=== PATIENT | male | born 1940 | race Caucasian/White ===

== ENCOUNTER 2017-10-08 05:37 | Day surgery (SDC) | payer MEDICARE, BC ==
[2017-10-08] MEDS ORDERED: DIPRIVAN 200 MG/20 ML IV ONE (05:38)
[2017-10-08] MEDS ORDERED: Lactated Ringers 1,000 ML IV SCH (06:30)
[2017-10-08] MEDS ORDERED: Lactated Ringers 1,000 ML IV ONE ×3 (06:33→13:41)
[2017-10-08] MEDS ORDERED: Versed 2 MG/2 ML Injection IV STA (06:34)
[2017-10-08 14:24] VITALS: O2SAT 98
--- NOTE | 2017-10-08 14:33 | OP ---
SURGERY DATE/TIME: 10/08/2017 1329 PREOPERATIVE DIAGNOSIS: Screening colonoscopy. POSTOPERATIVE DIAGNOSIS: Sigmoid colon polyp. PROCEDURE: Colonoscopy. SURGEON: Giovanni Fraga M.D. ANESTHESIA: MAC by Christophe Rivera CRNA. ESTIMATED BLOOD LOSS: Minimal. SPECIMENS: Hot snare polypectomy from sigmoid colon x1. DESCRIPTION OF PROCEDURE: After informed written consent was obtained, the patient was taken to the endoscopy suite. He underwent monitored anesthesia and a digital rectal exam showed normal sphincter tone and no internal lesions. The scope was inserted into the rectum and sequentially the entire colonic mucosa was traversed. The level of cecum was reached and verified with direct visualization of ileocecal valve. Upon withdrawal there was a sessile polyp on a stalk in the proximal sigmoid colon which was entrapped with the snare and grasped at the base with cautery. It was removed in its entirety and retrieved and sent for pathology. No other lesions were encountered upon withdrawal. The scope was removed and the patient was transferred to the recovery room in good condition.
[2017-10-08 15:02] VITALS: PULSE 76
[2017-10-08 15:05] VITALS: BP 144/79
== END 2017-10-08 14:55 | disposition home or self-care (01) ==
LOC: SDC 05:37
PROVIDERS: ATTEND Family Medicine
PROC: 0DBN8ZX Excision of Sigmoid Colon, Via Natural or Artificial Opening Endoscopic, Diagnostic (ICD-10-PCS; principal; 2017-10-08)
DX: Z12.11 Encounter for screening for malignant neoplasm of colon (principal); K63.5 Polyp of colon
CPT/HCPCS: 99100; J2250; J2704

== ENCOUNTER 2018-06-05 01:29 | Emergency (ER) | payer MEDICARE, BC ==
[2018-06-05 01:52] VITALS: O2SAT 97
--- NOTE | 2018-06-05 01:52 | ERPHSYRPT ---
- History of Present Illness Time Seen by Provider: 06/05/18 01:46 Historian: patient Exam Limitations: no limitations Physician History: 78 y/o white male presents with constipation for 4 days not responding to milk of magnesia. no nausea or vomiting. started feeling lower abd pressure late last night and this am. there was a change in his meds last week. he was taken off of liquid tussionex for cough and put on benzonate pills. Timing/Duration: day(s) (4) Activities at Onset: none Quality: pressure Pain Radiation: no radiation Severity of Pain-Max: mild Severity of Pain-Current: mild Modifying Factors: Improves With: nothing Associated Symptoms: No diaphoresis, No diarrhea, No loss of appetite, No nausea , No vomiting Previous symptoms: no prior history Allergies/Adverse Reactions: adhesive tape Allergy (Verified 06/05/18 01:55) Blisters Home Medications: Hydrochlorothiazide 25 mg [hydroDIURIL 25 MG] 25 mg PO HS 12/06/13 [ History] Potassium Chloride [K-Dur] 20 meq PO HS 12/06/13 [History] Pravastatin Sodium [Pravachol] 40 mg PO HS 12/06/13 [History] Benzonatate [Tessalon Perle] 100 mg PO BID 06/05/18 [History] Fluticasone/Salmeterol [Advair 100-50 Diskus] 1 each IH BID 06/05/18 [History] Tamsulosin HCl 0.4 mg [Flomax 0.4 MG] 0.4 mg PO DAILY 06/05/18 [History] Hx Tetanus, Diphtheria Vaccination/Date Given: Yes (5 years ago) Hx Influenza Vaccination/Date Given: Yes (2013) Hx Pneumococcal Vaccination/Date Given: Yes (WITHIN 5 YRS) - Review of Systems Constitutional: No Symptoms Eyes: No Symptoms Ears, Nose, & Throat: No Symptoms Respiratory: No Symptoms Cardiac: No Symptoms Abdominal/Gastrointestinal: Abdominal Pain (lower abd pressure), Constipation, No Nausea, No Vomiting, No Diarrhea Genitourinary Symptoms: No Symptoms Musculoskeletal: No Symptoms Skin: No Symptoms Neurological: No Symptoms Psychological: No Symptoms Endocrine: No Symptoms Hematologic/Lymphatic: No Symptoms Immunological/Allergic: No Symptoms All Other Systems: Reviewed and Negative - Past Medical History Pertinent Past Medical History: Yes Neurological History: No Pertinent History ENT History: No Pertinent History Cardiac History: High Cholesterol, Hypertension Respiratory History: Bronchitis, COPD Endocrine Medical History: No Pertinent History Musculoskeletal History: Fractures GI Medical History: No Pertinent History History: No Pertinent History Psycho-Social History: No Pertinent History Male Reproductive Disorders: Prostate Problems - Past Surgical History Past Surgical History: Yes Neuro Surgical History: No Pertinent History Cardiac: No Pertinent History Respiratory: No Pertinent History Gastrointestinal: Hernia Repair Genitourinary: No Pertinent History Musculoskeletal: No Pertinent History Male Surgical History: No Pertinent History - Social History Smoking Status: Never smoker Exposure to second hand smoke: No Drug Use: none Patient Lives Alone: No - Nursing Vital Signs Nursing Vital Signs: Initial Vital Signs Temperature 98.1 F 06/05/18 01:40 Pulse Rate 80 06/05/18 01:40 Respiratory Rate 18 06/05/18 01:40 Blood Pressure 186/107 06/05/18 01:40 O2 Sat by Pulse Oximetry 97 06/05/18 01:40 Pain Scale Pain Intensity 3 - Physical Exam General Appearance: no apparent distress, alert, anxiety Eye Exam: PERRL/EOMI Ears, Nose, Throat Exam: normal ENT inspection, moist mucous membranes Neck Exam: normal inspection, non-tender, supple, full range of motion Respiratory Exam: normal breath sounds, lungs clear, airway intact, No chest tenderness, No respiratory distress, No accessory muscle use, No rhonchi, No wheezing, No stridor Cardiovascular Exam: regular rate/rhythm, normal heart sounds, normal peripheral pulses Gastrointestinal/Abdomen Exam: soft, normal bowel sounds, tenderness (lower midline suprapubic pressure), No distention, No guarding, No rebound Rectal Exam: not done Back Exam: normal inspection, normal range of motion, No CVA tenderness, No vertebral tenderness Extremity Exam: normal inspection, normal range of motion, pelvis stable Neurologic Exam: alert, oriented x 3, cooperative, 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 Skin Exam: normal color, warm, dry Lymphatic Exam: No adenopathy SpO2 Interpretation: normal Oxygen Delivery: Room Air - Course Nursing assessment & vital signs reviewed: Yes Ordered Tests: Medication Summary Discontinued Medications Generic Name Dose Route Start Last Admin Trade Name Freq PRN Reason Stop Dose Admin Bisacodyl 10 mg 06/05/18 01:55 06/05/18 02:49 Dulcolax 10 Mg Supp PA 06/05/18 01:56 10 mg STAT ONE Administration Magnesium Citrate 296 ml 06/05/18 01:55 06/05/18 01:59 Citroma 296 Ml PO 06/05/18 01:56 296 ml STAT ONE Administration Magnesium Citrate Confirm 06/05/18 01:59 Citroma 296 Ml Administered 06/05/18 02:00 Dose 296 ml .ROUTE .STK-MED ONE - Progress Progress: improved, re-examined Progress Note: 06/05/18 03:20 pt states he had a large bowel movement. pts abd pain and pressure gone. he had a good response Counseled pt/family regarding: diagnosis, need for follow-up - Departure Time of Disposition: 03:21 Departure Disposition: Home Clinical Impression: Constipation, Hypertension Condition: Good Critical Care Time: No Referrals: REGINALD GARCIA MD [Primary Care Provider] - Additional Instructions: drink plenty of fluids. may repeat magnesium citrate one bottle orally and fleets enema rectally at 0900 if needed. follow up with primary doctor for recurrent symptoms and to evaluate high blood pressure.
[2018-06-05] MEDS ORDERED: Dulcolax 10 MG SUPP PR ONE (01:55)
[2018-06-05] MEDS ORDERED: CITROMA 296 ML PO ONE (01:55)
[2018-06-05] MEDS ORDERED: CITROMA 296 ML ONE (01:59)
[2018-06-05 04:08] VITALS: BP 164/102; PULSE 74
== END 2018-06-05 04:11 | disposition home or self-care (01) ==
LOC: ED 01:29
DX: K59.00 Constipation, unspecified (principal); I10 Essential (primary) hypertension; Z79.899 Other long term (current) drug therapy
CPT/HCPCS: 99283; A9270-GY

== ENCOUNTER 2018-10-09 11:13 | Inpatient (IN) | payer MEDICARE, BC ==
[2018-10-09 12:28] LABS: Basophil (Absolute #) 0 (0-0.4); Eosinophil % 0.1 % (0.00-5.0); Eosinophil (Absolute #) 0.01 (0-0.5); Granulocyte Absolute (ANC) 12.38 (1.4-6.9); Granulocytes % 84.5 % (36.0-66.0); Hematocrit 43.9 % (42-50); Hemoglobin 15.5 gm/dl (12.5-18.0); Lymphocyte (Absolute #) 0.68 (1.0-4.6); Lymphocytes % 4.6 % (24.0-44.0); Mean Cell Volume 94.6 fl (78-100); Mean Corpuscular Hemoglobin 33.4 pg (26-32); Mean Corpuscular Hgb Concent. 35.3 g/dl (32-36); Monocyte (Absolute #) 1.58 (0.0-1.3); Monocytes % 10.8 % (0.0-12.0); Platelet Count 163 K/mm3 (150-450); Red Blood Count 4.64 M/mm3 (4.1-5.6); Red Cell Distribution Width 13.6 % (11.5-14.0); White Blood Count 14.7 K/mm3 (4.0-10.5)
--- NOTE | 2018-10-09 12:30 | XRAY ---
Indication: Pneumonia. COPD. Short of breath. Comparison: None PA/lateral chest demonstrates right hemidiaphragm elevation with minimal right base infiltrate/atelectasis. Remaining heart and lungs unremarkable with incidental mediastinal calcified nodes. Bony thorax intact.
[2018-10-09 12:36] LABS: ALBUMIN 4.2 g/dL (3.5-5.0); ANION GAP 17.8 MEQ/L (5-15); BILIRUBIN,TOTAL 2.4 mg/dL (0.2-1.3); Calcium 9.2 mg/dL (8.4-10.2); Creatinine 1 1.4 mg/dL (0.66-1.25); Potassium 3.5 mmol/L (3.5-5.1)
[2018-10-09] MEDS ORDERED: DUONEB 0.5-3 MG/3 ml Neb IH PRN (13:00)
[2018-10-09] MEDS: Sodium Chloride 0.9% 1000 ML 1,000 ML IV SCH (13:08)
[2018-10-09] MEDS: ROCEPHIN 1 Gm-D5w 50 ml Bag** 1 G/50 ML IVPB IV SCH (13:08)
[2018-10-09 13:10] LABS: INFLUENZA A NEGATIVE (NEGATIVE); INFLUENZA B NEGATIVE (NEGATIVE); RESPIRATORY SYNCTIAL VIRUS NEGATIVE (Negative)
[2018-10-09] MEDS: Zithromax 500 MG/ 250 ML NaCl Premix 500 MG/250 ML IVPB IV SCH (13:11)
[2018-10-09] MEDS: Klonopin 0.5 MG PO SCH (13:50)
[2018-10-09] MEDS: Zofran 4 MG/2 ML VIAL IV PRN (14:20)
[2018-10-09] MEDS: TYLENOL 325 MG PO PRN (16:00)
[2018-10-09] MEDS ORDERED: ADVAIR HFA 45/21 COMMON CANISTER IH SCH (19:00)
[2018-10-09] MEDS: ZOCOR 20MG PO SCH (21:46)
[2018-10-09] MEDS: Klor Con 10 MEQ PO SCH (21:46)
[2018-10-09] MEDS ORDERED: NON-FORMULARY ITEM (Fluticasone/Salmeterol [Advair 100-50 Diskus] 1 EACH) IH SCH (22:00)
[2018-10-09] MEDS ORDERED: NON-FORMULARY ITEM (Potassium Chloride [K-Dur] 20 MEQ) PO SCH (22:00)
[2018-10-09] MEDS ORDERED: NON-FORMULARY ITEM (Pravastatin Sodium [Pravachol] 40 MG) PO SCH (22:00)
[2018-10-10] MEDS: TYLENOL 325 MG PO PRN ×2 (07:51→18:34)
[2018-10-10] MEDS: Zithromax 500 MG/ 250 ML NaCl Premix 500 MG/250 ML IVPB IV SCH (09:01)
[2018-10-10] MEDS: Sodium Chloride 0.9% 1000 ML 1,000 ML IV SCH (09:01)
[2018-10-10] MEDS: ROCEPHIN 1 Gm-D5w 50 ml Bag** 1 G/50 ML IVPB IV SCH (09:01)
[2018-10-10] MEDS: Klonopin 0.5 MG PO SCH (09:01)
[2018-10-10] MEDS: PATIENT OWN MEDICATION IH SCH ×2 (10:00→21:24)
[2018-10-10 11:01] LABS: BASOPHIL % 0.1 % (0.0-0.4); Basophil (Absolute #) 0.01 (0-0.4); Eosinophil % 0.2 % (0.00-5.0); Eosinophil (Absolute #) 0.02 (0-0.5); Granulocyte Absolute (ANC) 9.95 (1.4-6.9); Granulocytes % 79.8 % (36.0-66.0); Hematocrit 38.6 % (42-50); Hemoglobin 13.5 gm/dl (12.5-18.0); Lymphocyte (Absolute #) 1.13 (1.0-4.6); Lymphocytes % 9.1 % (24.0-44.0); Mean Platelet Volume 8.9 fl (6-9.5); Monocyte (Absolute #) 1.34 (0.0-1.3); Monocytes % 10.8 % (0.0-12.0); Platelet Count 136 K/mm3 (150-450); Red Blood Count 4.02 M/mm3 (4.1-5.6); Red Cell Distribution Width 13.7 % (11.5-14.0); White Blood Count 12.5 K/mm3 (4.0-10.5)
[2018-10-10 11:05] LABS: Mean Corpuscular Hemoglobin 33.5 pg (26-32)
[2018-10-10 11:13] LABS: ALBUMIN 3.2 g/dL (3.5-5.0); ANION GAP 12.7 MEQ/L (5-15); BILIRUBIN,TOTAL 2.1 mg/dL (0.2-1.3); Calcium 8.1 mg/dL (8.4-10.2); Creatinine 1 1.42 mg/dL (0.66-1.25); Potassium 3.8 mmol/L (3.5-5.1); Total Protein 6.6 g/dL (6.3-8.2)
[2018-10-10] MEDS: Tessalon Perles 100 MG PO PRN (12:23)
[2018-10-10] MEDS ORDERED: ADVAIR HFA 45/21 COMMON CANISTER IH SCH (19:00)
[2018-10-10] MEDS: ZOCOR 20MG PO SCH (21:18)
[2018-10-10] MEDS: Klor Con 10 MEQ PO SCH (21:18)
[2018-10-11] MEDS: Sodium Chloride 0.9% 1000 ML 1,000 ML IV SCH (05:03)
[2018-10-11] MEDS: TYLENOL 325 MG PO PRN (05:04)
[2018-10-11] MEDS: Tessalon Perles 100 MG PO PRN (05:04)
[2018-10-11 06:41] LABS: ANION GAP 12.2 MEQ/L (5-15); BLOOD UREA NITROGEN 21 mg/dL (9-20); CHLORIDE 97 mmol/L (98-107); Calcium 8.1 mg/dL (8.4-10.2); Carbon Dioxide 24 mmol/L (22-30); Creatinine 1 1.12 mg/dL (0.66-1.25); Glucose 151 mg/dL (74-106); Potassium 3.3 mmol/L (3.5-5.1); SODIUM 130 mmol/L (137-145)
[2018-10-11 06:42] LABS: BASOPHIL % 0.1 % (0.0-0.4); Basophil (Absolute #) 0.01 (0-0.4); Eosinophil % 1.7 % (0.00-5.0); Eosinophil (Absolute #) 0.12 (0-0.5); Granulocytes % 77.7 % (36.0-66.0); Hematocrit 37.9 % (42-50); Hemoglobin 13.2 gm/dl (12.5-18.0); Lymphocyte (Absolute #) 0.84 (1.0-4.6); Lymphocytes % 11.7 % (24.0-44.0); Mean Cell Volume 95.7 fl (78-100); Mean Corpuscular Hemoglobin 33.3 pg (26-32); Mean Corpuscular Hgb Concent. 34.8 g/dl (32-36); Mean Platelet Volume 9.6 fl (6-9.5); Monocyte (Absolute #) 0.63 (0.0-1.3); Monocytes % 8.8 % (0.0-12.0); Platelet Count 130 K/mm3 (150-450); Red Blood Count 3.96 M/mm3 (4.1-5.6); Red Cell Distribution Width 13.2 % (11.5-14.0); White Blood Count 7.2 K/mm3 (4.0-10.5)
[2018-10-11] MEDS: Zofran 4 MG/2 ML VIAL IV PRN (07:59)
[2018-10-11] MEDS: Klonopin 0.5 MG PO SCH (09:18)
[2018-10-11] MEDS: ROCEPHIN 1 Gm-D5w 50 ml Bag** 1 G/50 ML IVPB IV SCH (09:18)
[2018-10-11] MEDS: Klor Con 10 MEQ PO ONE ×2 (09:55→10:54)
[2018-10-11] MEDS: Zithromax 500 MG/ 250 ML NaCl Premix 500 MG/250 ML IVPB IV SCH (11:11)
--- NOTE | 2018-10-11 11:33 | PCM.NOTE ---
Date and Time: 10/11/181127 Subjective Assessment: Patient had some nausea this AM and a lot of cough last night that kept him from sleeping. He reports he used to take Tussionex 5 mL po bid for 18 years until it was stopped 6 months ago. Discussed with patient that it contains hydrocodone and this is probably why it was stopped. He reports he had a pneumonia shot in the past 12 months and is normally healthy. 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 - Review of Systems Constitutional: Fatigue Eyes: No Symptoms Ears, Nose, & Throat: No Symptoms Respiratory: Cough Cardiac: No Symptoms Abdominal/Gastrointestinal: No Symptoms Genitourinary Symptoms: No Symptoms Musculoskeletal: No Symptoms Skin: No Symptoms Objective Exam General Appearance: no apparent distress Neurologic Exam: alert, cooperative, normal mood/affect Skin Exam: normal color, warm, dry, No rash Respiratory Exam: normal breath sounds, lungs clear, No crackles/rales, No rhonchi, No wheezing Cardiovascular Exam: regular rate/rhythm, normal heart sounds, No murmur, No friction rub, No gallop Gastrointestinal/Abdomen Exam: soft, normal bowel sounds, No tenderness, No distention, No mass Extremity Exam: normal inspection, other (no c/c/e) OBJECTIVE DATA Vital Signs: Vital Signs - 24 hr Temp Pulse Resp BP BP Pulse Ox 10/11/18 08:59 18 10/11/18 08:07 98.4 F 60 18 126/73 96 10/11/18 05:00 97.7 F 62 18 180/79 94 L 10/11/18 00:05 98.0 F 96 H 16 117/68 96 10/10/18 20:17 98.5 F 69 16 128/75 95 10/10/18 20:04 94 L 10/10/18 18:00 18 10/10/18 17:00 98 F 60 18 96/54 95 10/10/18 14:00 18 10/10/18 12:04 98.4 F 58 L 18 92/53 94 L Oxygen-Last 24 hours O2 Percentage 2 Liters = 28% Oxygen Flowrate (L/min)-RT 2 Pain Assessment - Last Documented Pain Intensity 2 Pain Scale Used 0-10 Pain Scale Intake and Output: Intake & Output 10/09/18 10/10/18 10/11/1810/12/19 06:59 06:59 06:59 06:59 Intake Total 600 2826 Output Total 300 1475 Balance 300 1351 Weight 72 kg Lab Results: Lab Results-Last 24 Hours 10/10/18 10/11/18 10/11/18 Range/Units 10:55 05:40 05:40 WBC 7.2 (4.0-10.5) K/mm3 RBC 3.96 L (4.1-5.6) M/mm3 Hgb 13.2 (12.5-18.0) gm/dl Hct 37.9 L (42-50) % MCV 95.7 (78-100) fl MCH 33.3 H (26-32) pg MCHC 34.8 (32-36) g/dl RDW 13.2 (11.5-14.0) % Plt Count 130 L (150-450) K/mm3 MPV 9.6 H (6-9.5) fl Gran % 77.7 H (36.0-66.0) % Eos # (Auto) 0.12 (0-0.5) Absolute Lymphs (auto) 0.84 L (1.0-4.6) Absolute Monos (auto) 0.63 (0.0-1.3) Lymphocytes % 11.7 L (24.0-44.0) % Monocytes % 8.8 (0.0-12.0) % Eosinophils % 1.7 (0.00-5.0) % Basophils % 0.1 (0.0-0.4) % Absolute Granulocytes 5.60 (1.4-6.9) Basophils # 0.01 (0-0.4) Sodium 129 L 130 L (137-145) mmol/L Potassium 3.8 3.3 L (3.5-5.1) mmol/L Chloride 93 L 97 L (98-107) mmol/L Carbon Dioxide 28 24 (22-30) mmol/L Anion Gap 12.7 12.2 (5-15) MEQ/L BUN 28 H 21 H (9-20) mg/dL Creatinine 1.42 H 1.12 (0.66-1.25) mg/dL Estimated GFR 51.2 > 60.0 ML/MIN Glucose 106 151 H (74-106) mg/dL Calcium 8.1 L 8.1 L (8.4-10.2) mg/dL Total Bilirubin 2.10 H (0.2-1.3) mg/dL AST 26 (17-59) U/L ALT 22 (0-50) U/L Alkaline Phosphatase 50 (38-126) U/L Serum Total Protein 6.6 (6.3-8.2) g/dL Albumin 3.2 L (3.5-5.0) g/dL Radiology Exams: Radiology Procedures Category Date Time Status CHEST 2 VIEWS (PA AND LAT) Routine Exams 10/09/18 11:50 Completed Assessment/Plan (1) Pneumonia Current Visit: Yes Status: Acute Qualifiers: Laterality: right Lung location: lower lobe of lung Assessment & Plan: Continue IV antibiotics, try to wean oxygen as tolerated. His WBC has improved. Clinically he is improving as well and does not have crackles in his right lower lung field now. Will try tussionex for cough while he is here. Code(s): J18.9 - PNEUMONIA, UNSPECIFIED ORGANISM (2) Hyponatremia Current Visit: Yes Status: Acute Assessment & Plan: Continue IV fluids; slightly improved. Code(s): E87.1 - HYPO-OSMOLALITY AND HYPONATREMIA (3) Chronic kidney disease (CKD) Current Visit: Yes Status: Acute Qualifiers: Chronic kidney disease stage: stage 1 Qualified Code(s): N18.1 - Chronic kidney disease, stage 1 Assessment & Plan: His creatinine has improved with IV fluids. Code(s): N18.9 - CHRONIC KIDNEY DISEASE, UNSPECIFIED (4) COPD (chronic obstructive pulmonary disease) Current Visit: Yes Status: Acute (5) Mixed hyperlipidemia Current Visit: Yes Status: Acute Code(s): E78.2 - MIXED HYPERLIPIDEMIA (6) Hypokalemia Current Visit: Yes Status: Acute Assessment & Plan: He was given an extra 20 meq KCl today. Will check his magnesium level. Code(s): E87.6 - HYPOKALEMIA
[2018-10-11] MEDS ORDERED: Tussionex Pennkinetic Susp PO ONE (11:36)
[2018-10-11] MEDS: PATIENT OWN MEDICATION IH SCH ×2 (12:35→21:00)
[2018-10-11] MEDS: Klor Con 10 MEQ PO SCH (21:10)
[2018-10-11] MEDS: ZOCOR 20MG PO SCH (21:11)
[2018-10-11] MEDS ORDERED: Tussionex Pennkinetic Susp PO SCH (22:00)
[2018-10-11] MEDS ORDERED: Colace 100 MG PO SCH (22:00)
[2018-10-12] MEDS: Sodium Chloride 0.9% 1000 ML 1,000 ML IV SCH (04:41)
[2018-10-12 05:52] VITALS: PULSE 58
[2018-10-12] MEDS: PATIENT OWN MEDICATION IH SCH (06:58)
[2018-10-12 07:12] VITALS: BP 146/69
[2018-10-12 07:30] VITALS: O2SAT 94
--- NOTE | 2018-10-12 08:16 | HP ---
HISTORY OF PRESENT ILLNESS: This is a 78 year-old patient of Dr. Fraga. He was made a direct admission from his office yesterday. The patient was admitted with a right lower lobe pneumonia. The patient reports that he felt weak starting yesterday and had a decreased appetite and a bad cough that was productive of sputum. He continues to have the bad cough that was productive of sputum. He continues to have the bad cough. He does not wear oxygen at home. He is usually fairly healthy. REVIEW OF SYSTEMS: He had some nausea and vomiting. No diarrhea. No chest pain. No abdominal pain. No swelling. PAST MEDICAL HISTORY: Hyperlipidemia, anxiety, chronic obstructive pulmonary disease. PAST SURGICAL HISTORY: Colonoscopy. MEDICATIONS: Please see his medication reconciliation list which I reviewed. ALLERGIES: NKDA. SOCIAL HISTORY: Nonsmoker. FAMILY HISTORY: Noncontributory. PHYSICAL EXAMINATION: VITAL SIGNS: Temperature current 98.4F, temperature max 98.5F, heart rate 58 to 68, respiratory rate 18 to 21, blood pressure 92 to 147 over 53 to 70. Oxygen saturation 90 to 94% on 2 liters nasal cannula. GENERAL: The patient is a pleasant talkative man sitting up in no acute distress. He has two sons and daughter at the bedside. CVS: He has a regular rate and rhythm. No murmurs, gallops or rubs. CHEST: Crackles at the right lower lung field otherwise clear to auscultation, equal breath sounds. ABDOMEN: Soft, nontender, nondistended. EXTREMITIES: No clubbing, cyanosis or edema. SKIN: Warm, dry and intact. LABORATORY DATA AND TESTS: On admission his white blood cell count was 14,700 and repeat today 12,500. His sodium was low at 129, creatinine slightly elevated at 142. Influenza A, B, respiratory syncytial virus were all negative. Chest x-ray was ready as minimal right base infiltrate/atelectasis. Please see the radiologist report for the full dictation. He has blood cultures and urine culture in lab. ASSESSMENT AND PLAN: 1) RIGHT LOWER LOBE PNEUMONIA: He has been started on ceftriaxone and azithromycin. He will continue with these as well as oxygen and breathing treatments as needed. I also started him on benzonatate for his cough. I am going to increase his IV fluids as his blood pressure is lower now than it was on admission. 2) HYPONATREMIA: Will continue with the fluids. It has improved by 2 points. It is likely due to the infection. 3) CHRONIC KIDNEY DISEASE: His creatinine is 1.42, will continue to follow this. 4) HISTORY OF CHRONIC OBSTRUCTIVE PULMONARY DISEASE: Will continue with oxygen, breathing treatments. He did not have a lot of wheezing so I do not feel strongly about putting him on steroids at this time. 5) HYPERLIPIDEMIA: Will continue with his home medications.
--- NOTE | 2018-10-12 08:23 | PCM.DS ---
Discharge Summary Date of Admission: 10/09/18 16:10 Admitting Physician: REGINALD GARCIA Primary Care Provider: REGINALD GARCIA Allergies Allergies adhesive tape Allergy (Verified 06/05/18 01:55) Blisters Hospital Summary - Hospital Course Hospital Course: patient doing much better at this time, was direct admitted with pneumonia, started on rocephin and zithromax. has been afebrile, wbc normalized and on room air. - Vitals & Intake/Output Vital Signs: Vital Signs Temperature 98.2 F 10/12/18 07:11 Pulse Rate 58 L 10/12/18 07:11 Respiratory Rate 20 10/12/18 07:11 Blood Pressure 146/69 10/12/18 07:11 O2 Sat by Pulse Oximetry 94 L 10/12/18 07:29 Oxygen-Last Documented O2 Percentage 2 Liters = 28% Intake & Output: Intake & Output 10/09/18 10/10/18 10/11/18 10/12/18 11:59 11:59 11:59 11:59 Intake Total 600 2826 2511 Output Total 300 1475 880 Balance 300 1351 1631 Weight 72 kg - Lab Result Diagrams: 10/11/18 05:40 10/11/18 05:40 Lab Results-Last 24 Hrs: Lab Results-Last 24 Hours 10/11/18 Range/Units 05:00 Magnesium 2.0 (1.6-2.3) mg/dL Micro Results-Entire Visit: Microbiology 10/10/18 11:25 Gram Stain - Final Sputum - Expectorant Sputum Culture - Final Streptococcus Pneumoniae 10/09/18 11:45 Blood Culture - Preliminary Blood NO GROWTH TO DATE 10/09/18 11:45 Blood Culture - Preliminary Blood NO GROWTH TO DATE - Procedures and Test Procedures and Tests throughout Hospitalization: Therapy Orders & Screens 10/09/18 21:18 Oxygen Nasal Cannula 2 lpm Comment: Diagnosis: PNEUMONIA 10/09/18 21:27 Respiratory Therapy Assessment DAILY Comment: Diagnosis: PNEUMONIA 10/11/18 07:00 Respiratory MDI BID Comment: WINSTON 2 PUFFS BID Diagnosis: PNEUMONIA Discharge Exam General Appearance: no apparent distress, alert Neurologic Exam: alert, oriented x 3 Skin Exam: normal color, warm, dry Respiratory Exam: normal breath sounds Cardiovascular Exam: regular rate/rhythm, normal heart sounds Gastrointestinal/Abdomen Exam: soft, No tenderness, No mass Extremity Exam: normal inspection, normal range of motion Final Diagnosis/Problem List - Final Discharge Diagnosis/Problem (1) Pneumonia Current Visit: Yes Status: Acute Code(s): J18.9 - PNEUMONIA, UNSPECIFIED ORGANISM (2) COPD (chronic obstructive pulmonary disease) Current Visit: Yes Status: Acute - Discharge Disposition: Home, Self-Care Condition: Stable Prescriptions: New Hydrocod Psx/Chlor-Jf [Tussionex Pennkinetic Susp] 5 ml PO BID PRN # 120 ml MDD 10 PRN Reason: Cough Amox Tr/Potass Clav. 500 mg [Augmentin 500-125 Tablet] 500 mg PO TID # 21 tablet Continue Pravastatin Sodium [Pravachol] 40 mg PO HS Potassium Chloride [K-Dur] 20 meq PO HS Clonazepam 0.5 mg [Klonopin 0.5 MG] 0.5 mg PO DAILY #90 tab Fluticasone/Salmeterol [Advair 100-50 Diskus] 1 each IH BID Discontinued Benzonatate [Tessalon Perle] 100 mg PO DAILY Follow up with: REGINALD GARCIA MD [Primary Care Provider] - 1 Week
== END 2018-10-12 09:25 | disposition home or self-care (01) | DRG 194 ==
LOC: MED SURG 11:13 → OBSVTOIN 16:10
PROVIDERS: ADMIT Family Medicine; ATTEND Family Medicine
DX: J44.9 Chronic obstructive pulmonary disease, unspecified (principal); J18.9 Pneumonia, unspecified organism; E87.1 Hypo-osmolality and hyponatremia; Z79.899 Other long term (current) drug therapy; I10 Essential (primary) hypertension; R11.2 Nausea with vomiting, unspecified; N18.1 Chronic kidney disease, stage 1; E78.2 Mixed hyperlipidemia; E87.6 Hypokalemia
CPT/HCPCS: 36415; 71046; 80048; 80053; 83735; 85025; 87040; 87070; 87077; 87631; 94640; 94760; G0378; J0456; J0696; J2405; A9270-GY